=== PATIENT | male | born 1955 | race Caucasian/White ===

== ENCOUNTER 2016-08-18 05:41 | Outpatient (CLI) | payer BC ==
[~2016-08-18] VITALS: Ht 182.9 cm; Wt 73.6 kg
[2016-08-18] MEDS ORDERED: ASPI-586 PO (11:51)
== END 2016-08-18 11:55 ==
LOC: PREOP 05:41
PROVIDERS: ATTEND Surgery
DX: Z01.818 Encounter for other preprocedural examination (principal); Z12.11 Encounter for screening for malignant neoplasm of colon

== ENCOUNTER 2016-09-05 07:27 | Day surgery (SDC) | payer BC ==
[~2016-09-05] VITALS: Ht 182.9 cm; Wt 73.6 kg
[~2016-09-05 07:27] MED LIST: ASPI-586 PO
--- OUTSIDE RECORDS SUMMARY | 2016-09-05 07:30 | XMS REPORT | Continuity of Care Document ---
Author Author [facility] Organization [facility] Address Unknown Phone Unavailable Support Name Relationship Address Phone KATE MATTHEWS MD Caregiver #[address] [facility] [place] [address] Insurance Providers Payer Name Policy Number Subscriber Name Relationship [facility] [id number] Jonathan Valera 17 Self / Same As Patient Advance Directives Directive Response Recorded Date/Time Advance Directives No 08/18/16 11:49am Health Care Power of Trimmer Sorter No 08/18/16 11:49am Resuscitation Status Full Code 08/18/16 11:49am Problems No problem information available. Medications Current Home Medications Medication Dose Units Route Directions Days/Qty Instructions Start Date Aspirin 81 Mg 81 Mg Oral Daily 08/18/16 Social History Social History Problem Response Recorded Date/Time Alcohol Use Denies Use 08/18/2016 11:49am Recreational Drug Use No 08/18/2016 11:49am Recent Foreign Travel No 08/18/2016 11:48am Recent Infectious Disease Exposure No 08/18/2016 11:48am Sexually Transmitted Disease No 08/18/2016 11:49am HIV/AIDS No 08/18/2016 11:49am Smoking Status Never a Smoker 08/18/2016 11:49am Recent Hopitalizations No 08/18/2016 11:49am Sexually Transmitted Disease No 08/18/2016 11:49am Query Response Start Date Stop Date Smoking Status Never a Smoker Hospital Discharge Instructions No hospital discharge instructions. Plan of Care Discharge Date 08/18/16 11:55am Prescriptions See Medication Section Functional Status No functional status results. Allergies, Adverse Reactions, Alerts No known allergies. Immunizations No immunization records. Vital Signs Acute Vital Signs Vital Response Date/Time Height (Feet) 6 feet 08/18/2016 11:47am Height (Inches) 0.00 inches 08/18/2016 11:47am Height (Calculated Centimeters) 182.423168 cm 08/18/2016 11:47am Weight (Pounds) 162 pounds 08/18/2016 11:47am Weight (Ounces) 3.0 oz 08/18/2016 11:47am Weight (Calculated Grams) 63181.01 gm 08/18/2016 11:47am Weight (Calculated Kilograms) 73.693601 kilograms 08/18/2016 11:47am Calculated BMI 22.0 08/18/2016 11:47am Results No known relevant diagnostic tests, laboratory data and/or discharge summary. Procedures No known history of procedures. Encounters Encounter Location Arrival/Admit Date Discharge/Depart Date Attending Provider Departed Clinic [facility] 08/18/16 5:41am 08/18/16 11: 55am KATE MATTHEWS MD
--- OUTSIDE RECORDS SUMMARY | 2016-09-05 07:30 | XMS REPORT | Continuity of Care Document ---
Author Author [facility] Organization [facility] Address Unknown Phone Unavailable Support Name Relationship Address Phone KATE MATTHEWS MD Caregiver #[address] [facility] [place] [address] Insurance Providers Payer Name Policy Number Subscriber Name Relationship [facility] [id number] Jonathan Valera 17 Self / Same As Patient Advance Directives Directive Response Recorded Date/Time Advance Directives No 08/18/16 11:49am Health Care Power of Hospital Pharmacy Director No 08/18/16 11:49am Resuscitation Status Full Code [...] 0.00 inches 08/18/2016 11:47am Height (Calculated Centimeters) 182.951717 cm 08/18/2016 11:47am Weight (Pounds) 162 pounds 08/18/2016 11:47am Weight (Ounces) 3.0 oz 08/18/2016 11:47am Weight (Calculated Grams) 20247.01 gm 08/18/2016 11:47am Weight (Calculated Kilograms) 73.689019 kilograms 08/18/2016 11:47am Calculated BMI 22.0 08/18/2016 11:47am Results No known relevant diagnostic tests, laboratory data and/or discharge summary. Procedures No known history of procedures. Encounters Encounter Location Arrival/Admit Date Discharge/Depart Date Attending Provider Departed Clinic [facility] 08/18/16 5:41am 08/18/16 11: 55am KATE MATTHEWS MD
[2016-09-05] MEDS ORDERED: NS IV 500 ML 500 ML IV PRN (07:34)
[2016-09-05] MEDS ORDERED: NALOXONE 0.4 MG/ML 1 ML (NARCAN) VIAL IVP PRN (07:45)
[2016-09-05] MEDS ORDERED: FLUMAZENIL (ROMAZICON) 0.1 MG/ML 5 ML VIAL INJ PRN (07:45)
[2016-09-05 07:58] VITALS: BP 143/92
[2016-09-05] MEDS ORDERED: fentaNYL INJECTION 100 MCG/2 ML AMP ONE (08:22)
[2016-09-05] MEDS ORDERED: MIDAZOLAM 2 MG/2 ML (VERSED) VIAL ONE ×3 (08:22)
[2016-09-05] MEDS: fentaNYL INJECTION 100 MCG/2 ML AMP IVP PRN ×2 (08:25→08:30)
[2016-09-05] MEDS: MIDAZOLAM 2 MG/2 ML (VERSED) VIAL IVP PRN ×2 (08:26→08:31)
[2016-09-05 09:00] VITALS: BP 124/85
--- NOTE | 2016-09-05 09:00 | Pre-Op Note & Conscious Sedat ---
Pre-Operative Progress Note H&P Reviewed The H&P was reviewed, patient examined and no changes noted. Date H&P Reviewed: Sep 05, 2016 Time H&P Reviewed: 07:35 Pre-Op Diagnosis: screening. Family history of polyps Conscious Sedation Pre-Proced ASA Class: 1 Airway Mallampati Classification: (port gamble appropriate class) I. II. III, IV Lungs Heart ASA score ASA 1: a normal healthy patient ASA 2: a patient with a mild systemic disease (mid diabetes, controlled hypertension, obesity ASA 3: a patient with a severe systemic disease that limits activity (angina , COPD, prior Myocardial infarction) ASA 4: a patient with an incapacitating disease that is a constant threat to life (CHF, renal failure) ASA 5: a moribund patient not expected to survive 24 hrs. (ruptured aneurysm) ASA 6: a declared brain patient whose organs are being harvested. For emergent operations, add the letter E after the classification Grade 1 Sedation Plan: Discussed options with patient/fam Note The patient is an appropriate candidate to undergo the planned procedure, sedation, and anesthesia. The patient immediately re-assessed prior to indication. KATE MATTHEWS MD Sep 05, 2016 9:00 am
--- NOTE | 2016-09-05 09:01 | Progress Note-Post Operative ---
Post-Operative Progess Note Pre-Operative Diagnosis screening. Family history of polyps Post-Operative Diagnosis occasional sigmoid diverticulae Post-Op Procedure Note Date of Procedure: Sep 05, 2016 Name of Procedure: colonoscopy to cecum Anesthesia Type sedation KATE MATTHEWS MD Sep 05, 2016 9:01 am
--- NOTE | 2016-09-05 09:02 | Discharge Inst-Simple/Standard ---
Discharge Inst-Standard Discharge Medications New, Converted or Re-Newed RX: Other Patient Instructions/Follow Up Plan of Care/Instructions/FU: repeat colonoscopy in 5 years Activity as Tolerated: Yes Discharge Diet: No Restrictions KATE MATTHEWS MD Sep 05, 2016 9:02 am
[2016-09-05 09:30] VITALS: BP 134/84
[2016-09-05 10:10] VITALS: BP 134/84
--- NOTE | 2016-09-06 07:36 | PROCEDURE REPORT ---
PROCEDURE PHYSICIAN: KATE MATTHEWS DATE OF PROCEDURE: 09/05/2016 PROCEDURE: Screening colonoscopy. SURGEON: Dr. Matthews. INDICATION FOR THE PROCEDURE: This gentleman came in for screening colonoscopy. His brother has just been found to have polyps. Informed consent was obtained after reviewing the procedure in detail. DESCRIPTION OF PROCEDURE: He was placed in left lateral decubitus position and his vital signs were monitored. Conscious sedation was achieved using Versed and fentanyl. Digital rectal examination was unremarkable. The colonoscope was then introduced into the rectum and advanced all the way up to the cecum. It was then withdrawn slowly and the mucosa examined in a systematic fashion. FINDINGS: 1. Very few, scattered sigmoid diverticula. 2. No polyps were found. He tolerated the procedure well and was taken back to the nursing area in a stable condition. IMPRESSION: 1. Screening colonoscopy. 2. No polyps. 3. Family history of polyps. I recommend repeating in 5 years. Job ID: [id number] Dictated Date: 09/05/2016 08:53:21 Golf Cart Maker Date: 09/06/2016 07:34:25 / gabrielle IRAHETA
== END 2016-09-05 10:10 | disposition home or self-care (01) ==
LOC: ENDO 07:27
PROVIDERS: ATTEND Surgery
DX: Z12.11 Encounter for screening for malignant neoplasm of colon (principal); Z83.71 Family history of colonic polyps; K57.90 Diverticulosis of intestine, part unspecified, without perforation or abscess without bleeding

== ENCOUNTER → 2017-08-02 | Outpatient (CLI) | payer BC ==
--- NOTE | 2017-08-02 15:29 | Diagnostic Imaging Report ---
PROCEDURE: MRI right joint upper extremity without contrast. TECHNIQUE: Multiplanar, multisequence non contrast-enhanced MRI of the right upper extremity was accomplished. INDICATION: Injury in the right shoulder with pain, felt a pop. Decreased range of motion. COMPARISON: None. FINDINGS: Multiple sequences demonstrate motion artifact. No acute fracture or dislocation is seen in the right shoulder. Alignment appears normal. Small subcortical cystlike changes are seen at the humeral head, likely degenerative. There is no glenohumeral joint effusion. There is tendinopathy of the distal supraspinatus tendon. A very small full-thickness tear is seen near the footplate, measuring approximately 3 mm AP. The infraspinatus and teres minor tendons appear intact. The subscapularis tendon demonstrates minimal tendinopathy but otherwise appears intact. There is no muscular atrophy of the rotator cuff. There is trace fluid in the subacromial subdeltoid bursa. The long head of the biceps tendon appears normal in course and signal. The glenoid labrum is suboptimally evaluated in the absence of contrast; however, there is irregular tearing of the anterior inferior labrum. No para-labral cysts are seen. The suprascapular and spinoglenoid notches are unremarkable. The acromion undersurface is flat, without significant downsloping. There are mild degenerative changes in the right acromioclavicular joint. The coracoclavicular and coracoacromial ligaments are intact. The subcoracoid fat is clear. No axillary lymphadenopathy is seen. No soft tissue fluid collections are seen. There is mild edema and indistinction at the humeral attachment of the inferior glenohumeral ligament. IMPRESSION: 1. Very small full-thickness tear/fissure in the distal right supraspinatus tendon with minimal fluid in the subacromial subdeltoid bursa. No muscular atrophy in the rotator cuff. 2. Edema and indistinction at the humeral attachment of the inferior glenohumeral ligament, concerning for sprain/tear. 3. Anterior inferior labral tear, which is age-indeterminate. Dictated by: Dictated on workstation # [id number]
== END ==
LOC: RAD 14:10
PROVIDERS: ATTEND Orthopaedic Surgery
DX: S43.491A Other sprain of right shoulder joint, initial encounter (principal)
CPT/HCPCS: 73221

== ENCOUNTER 2018-03-06 10:38 | Outpatient (RCR) | payer BC | END 2018-03-12 | disposition home or self-care (01) | PROVIDERS: ATTEND Orthopaedic Surgery Hand Surgery | DX: M75.101 Unspecified rotator cuff tear or rupture of right shoulder, not specified as traumatic (principal); M75.01 Adhesive capsulitis of right shoulder ==

== ENCOUNTER 2018-04-23 11:03 | Outpatient (RCR) | payer BC | END 2018-06-14 | disposition home or self-care (01) | PROVIDERS: ATTEND Orthopaedic Surgery Hand Surgery | DX: M75.101 Unspecified rotator cuff tear or rupture of right shoulder, not specified as traumatic (principal); M75.01 Adhesive capsulitis of right shoulder ==

== ENCOUNTER 2019-06-07 15:27 | Outpatient (RCR) | payer BC | END 2019-06-20 | disposition home or self-care (01) | PROVIDERS: ATTEND Physical Therapist | DX: M47.816 Spondylosis without myelopathy or radiculopathy, lumbar region (principal) ==

== ENCOUNTER 2019-10-07 10:39 | Outpatient (RCR) | payer BC | END 2019-11-28 | disposition home or self-care (01) | PROVIDERS: ATTEND Physical Therapist | DX: M54.5 Low back pain (principal) ==